=== PATIENT | male | born 1950 | race Two or more races ===

== ENCOUNTER → 2021-03-16 | Outpatient (CLI) | payer MEDICARE | END | disposition home or self-care (01) | LOC: CFH 12:06 → EDSEX 12:06 | PROVIDERS: ATTEND Nurse Practitioner Family | DX: J47.9 Bronchiectasis, uncomplicated (principal); D86.9 Sarcoidosis, unspecified; M31.30 Wegener's granulomatosis without renal involvement; R06.02 Shortness of breath | CPT/HCPCS: 71250 ==